=== PATIENT | male | born 1995 | race Asian ===

== ENCOUNTER 2021-12-03 18:20 | Emergency (ER) | payer SELFPAY ==
--- NOTE | 2021-12-03 21:15 | RAD REPORT ---
EXAM DESCRIPTION: RAD - Foot Left 3 View - 12/03/2021 9:05 pm CLINICAL HISTORY: PAIN COMPARISON: No comparisons FINDINGS: No bone or joint abnormality is detected.
--- NOTE | 2021-12-03 21:32 | ER ---
Nurse's Notes [facility] Name: Enzo Brown Age: 26 yrs Sex: Male : 1995 Arrival Date: 12/03/2021 Time: 18:23 Bed 23 Private MD: Diagnosis: Pain in left foot Presentation: 12/03 19:25 Chief complaint: Friend and/or Co-Worker states: left foot pain for 3 days. comes and lg3 goes. believes it is due to uric acid. Coronavirus screen: Client denies travel out of the [place] in the last 14 days. At this time, the client does not indicate any symptoms associated with coronavirus-19. Ebola Screen: No symptoms or risks identified at this time. Initial Sepsis Screen: Does the patient meet any 2 criteria? No. Patient's initial sepsis screen is negative. Does the patient have a suspected source of infection? No. Patient's initial sepsis screen is negative. Risk Assessment: Do you want to hurt yourself or someone else? Patient reports no desire to harm self or others. Onset of symptoms was November 30, 2021. 19:25 Method Of Arrival: Wheelchair lg3 19:25 Acuity: YESI 3 lg3 Triage Assessment: 19:28 General: Appears in no apparent distress. comfortable, Behavior is calm, cooperative. lg3 Pain: Complains of pain in left foot Pain currently is 9 out of 10 on a pain scale. EENT: No deficits noted. No signs and/or symptoms were reported regarding the EENT system. Neuro: No deficits noted. Level of Consciousness is awake, alert, obeys commands, Oriented to person, place, time. Cardiovascular: No deficits noted. Denies chest pain, shortness of breath. Respiratory: No deficits noted. Airway is patent Trachea midline Respiratory effort is even, unlabored, Respiratory pattern is regular, symmetrical. GI: No deficits noted. No signs and/or symptoms were reported involving the gastrointestinal system. : No deficits noted. No signs and/or symptoms were reported regarding the genitourinary system. Derm: No deficits noted. No signs and/or symptoms reported regarding the dermatologic system. Musculoskeletal: Reports pain in left foot. Historical: - Allergies: 19:28 No Known Allergies; lg3 - Home Meds: 19: None [Active]; lg3 - PMHx: 19:28 None; lg3 - PSHx: 19:28 None; lg3 - Immunization history:: Adult Immunizations not up to date, Client reports receiving the 1st dose of the Covid vaccine. - Social history:: Smoking status: Patient reports the use of cigarette tobacco products, smokes one-half pack cigarettes per day, Patient uses alcohol, occasionally. Screenin:31 Abuse screen: Denies threats or abuse. Denies injuries from another. Nutritional lg3 screening: No deficits noted. Tuberculosis screening: No symptoms or risk factors identified. Fall Risk None identified. Assessment: 20:03 General: Appears in no apparent distress. comfortable, Behavior is calm, cooperative, ld1 appropriate for age. Pain: Complains of pain in left foot Pain does not radiate. Pain currently is 7 out of 10 on a pain scale. Quality of pain is described as throbbing, Pain began suddenly, Is continuous. Neuro: Level of Consciousness is awake, alert, obeys commands, Oriented to person, place, time, situation, Appropriate for age. Cardiovascular: Capillary refill < 3 seconds Patient's skin is warm and dry. Respiratory: Airway is patent Respiratory effort is even, unlabored. GI: No signs and/or symptoms were reported involving the gastrointestinal system. : No signs and/or symptoms were reported regarding the genitourinary system. EENT: No signs and/or symptoms were reported regarding the EENT system. Derm: No signs and/or symptoms reported regarding the dermatologic system. Musculoskeletal: No signs and/or symptoms reported regarding the musculoskeletal system. 20:45 Reassessment: Patient appears in no apparent distress at this time. No changes from ld1 previously documented assessment. Patient and/or family updated on plan of care and expected duration. Pain level reassessed. Vital Signs: 19:25 BP 150 / 124; Pulse 80; Resp 17; Temp 98.8(TE); Pulse Ox 100% on R/A; Weight 74.84 kg lg3 (R); Height 5 ft. 4 in. (162.56 cm) (R); Pain 9/10; 20:45 BP 146 / 109; Pulse 82; Resp 18; Pulse Ox 100% on R/A; ld1 19:25 Body Mass Index 28.32 (74.84 kg, 162.56 cm) lg3 ED Course: 18:23 Patient arrived in ED. ds1 19:28 Triage completed. lg3 19:28 Arm band placed on left wrist. lg3 19:58 Te Denise PA is PHCP. jr8 19:58 Bryan Mora MD is Attending Physician. jr8 20:03 Yeni Bravo, RN is Primary Nurse. ld1 20:03 Patient has correct armband on for positive identification. Placed in gown. Bed in low ld1 position. Call light in reach. Side rails up X2. quality assurance monitor final on. Pulse ox on. NIBP on. Door closed. Noise minimized. Warm blanket given. 20:03 No provider procedures requiring assistance completed. ld1 21:07 XRAY Foot LEFT 3 View In Process Unspecified. EDMS 21:30 Oliverio Panaigua DPM is Referral Physician. jr8 21:40 Patient did not have IV access during this emergency room visit. vc1 21:47 Primary Nurse role handed off by Yeni Bravo, RN vc1 Administered Medications: 21:54 Drug: Motrin (ibuprofen) 600 mg Route: PO; vc1 21:54 Drug: [place] (HYDROcodone-acetaminophen) 10 mg-325 mg 1 tabs Route: PO; vc1 Outcome: 21:31 Discharge ordered by . jr8 21:40 Discharged to home ambulatory, with family. vc1 21:40 Condition: good 21:40 Discharge instructions given to patient, family, Instructed on discharge instructions, follow up and referral plans. medication usage, Demonstrated understanding of instructions, follow-up care, medications, Prescriptions given X 1. 21:40 Patient left the ED. vc1 21:57 Patient left the ED. mw2 Signatures: Dispatcher [employer]DAK Anca Vergara ds1 Te Denise PA PA jr8 Reginald Doan mw2 Shawnee Pritchett RN RN lg3 Yeni Bravo, RN RN ld1 Deborah Moore RN RN vc1
--- NOTE | 2021-12-03 21:32 | EDPHYS ---
Physician Documentation [facility] Name: Enzo Brown Age: 26 yrs Sex: Male : 1995 Arrival Date: 12/03/2021 Time: 18:23 Bed 23 Private MD: ANGIE Physician Bryan Mora HPI: 12/03 20:37 This 26 yrs old Male presents to ER via Wheelchair with complaints of Foot Pain. jr8 20:37 Onset: The symptoms/episode began/occurred acutely, today. Modifying factors: The jr8 symptoms are alleviated by nothing. the symptoms are aggravated by movement, weight bearing. Associated signs and symptoms: The patient has no apparent associated signs or symptoms. Severity of symptoms: At their worst the symptoms were moderate, in the emergency department the symptoms are unchanged. The patient has not experienced similar symptoms in the past. The patient has not recently seen a physician. Patient stated that his left foot started to hurt earlier today on the dorsal aspect. Denies fall or injury to foot. Denies any other medical problems or pain.. Historical: - Allergies: 19:28 No Known Allergies; lg3 - Home Meds: 19:28 None [Active]; lg3 - PMHx: 19:28 None; lg3 - PSHx: 19:28 None; lg3 - Immunization history:: Adult Immunizations not up to date, Client reports receiving the 1st dose of the Covid vaccine. - Social history:: Smoking status: Patient reports the use of cigarette tobacco products, smokes one-half pack cigarettes per day, Patient uses alcohol, occasionally. ROS: 20:37 Eyes: Negative for injury, pain, redness, and discharge, ENT: Negative for injury, jr8 pain, and discharge, Neck: Negative for injury, pain, and swelling, Cardiovascular: Negative for chest pain, palpitations, and edema, Respiratory: Negative for shortness of breath, cough, wheezing, and pleuritic chest pain, Abdomen/GI: Negative for abdominal pain, nausea, vomiting, diarrhea, and constipation, Back: Negative for injury and pain, Skin: Negative for injury, rash, and discoloration, Neuro: Negative for headache, weakness, numbness, tingling, and seizure. 20:37 MS/extremity: Positive for pain, tenderness, of the left foot. Exam: 20:37 Constitutional: This is a well developed, well nourished patient who is awake, alert, jr8 and in no acute distress. Cardiovascular: Regular rate and rhythm with a normal S1 and S2. No gallops, murmurs, or rubs. Normal PMI, no JVD. No pulse deficits. Respiratory: Lungs have equal breath sounds bilaterally, clear to auscultation and percussion. No rales, rhonchi or wheezes noted. No increased work of breathing, no retractions or nasal flaring. Skin: Warm, dry with normal turgor. Normal color with no rashes, no lesions, and no evidence of cellulitis. Neuro: Awake and alert, GCS 15, oriented to person, place, time, and situation. Cranial nerves II-XII grossly intact. Motor strength 5/5 in all extremities. Sensory grossly intact. 20:37 Musculoskeletal/extremity: Extremities: grossly normal except: noted in the left foot: pain, tenderness, over dorsal mid foot. No erythema, swelling, or bruising noted . Vital Signs: 19:25 BP 150 / 124; Pulse 80; Resp 17; Temp 98.8(TE); Pulse Ox 100% on R/A; Weight 74.84 kg lg3 (R); Height 5 ft. 4 in. (162.56 cm) (R); Pain 9/10; 20:45 BP 146 / 109; Pulse 82; Resp 18; Pulse Ox 100% on R/A; ld1 19:25 Body Mass Index 28.32 (74.84 kg, 162.56 cm) lg3 MDM: 19:58 Patient medically screened. jr8 20:37 Data reviewed: vital signs, nurses notes, radiologic studies, plain films. Data jr8 interpreted: Pulse oximetry: on room air is 100 %. Interpretation: normal. Counseling: I had a detailed discussion with the patient and/or guardian regarding: the historical points, exam findings, and any diagnostic results supporting the discharge/admit diagnosis, radiology results, the need for outpatient follow up, a family practitioner, to return to the emergency department if symptoms worsen or persist or if there are any questions or concerns that arise at home. 21:30 ED course: No acute osseous findings on x-ray. Will start patient on jr8 anti-inflammatories and needs follow-up podiatry if he continues to have pain.. 12/03 20:25 Order name: XRAY Foot LEFT 3 View; Complete Time: 21:30 ld1 Administered Medications: 21:54 Drug: Motrin (ibuprofen) 600 mg Route: PO; vc1 21:54 Drug: [place] (HYDROcodone-acetaminophen) 10 mg-325 mg 1 tabs Route: PO; vc1 Disposition Summary: 12/03/21 21:31 Discharge Ordered Location: Home jr8 Problem: new jr8 Symptoms: are unchanged jr8 Condition: Stable jr8 Diagnosis - Pain in left foot jr8 Followup: jr8 - With: Oliverio Paniagua DPM - When: 1 week - Reason: If symptoms return, Recheck today's complaints Discharge Instructions: - Discharge Summary Sheet jr8 - Foot Pain jr8 Forms: - Medication Reconciliation Form jr8 - Thank You Letter jr8 - Antibiotic Education jr8 - Prescription Opioid Use jr8 Prescriptions: - meloxicam 15 mg Oral tablet - take 1 tablet by ORAL route once daily As needed; 10 tablet; Refills: 0, jr8 Product Selection Permitted - Tylenol-Codeine #3 300 mg-30 mg Oral - take 2 tablet by ORAL route every 6 hours; 26 tablet; Refills: 0, Product gabriella Selection Permitted - Medrol ([place]) 4 mg Oral Tablets, Dose Pack - take 1 tablet by ORAL route as directed - follow package instructions; 1 gabriella packet; Refills: 0, Product Selection Permitted - colchicine 0.6 mg Oral tablet - take 2 tablet by ORAL route 2 times per day; 6 tablet; Refills: 0, Product jr8 Selection Permitted Addendum: 12/05/2021 06:37 Co-signature as Attending Physician, Bryan Mora MD I agree with the assessment and c taylor plan of care. Signatures: Dispatcher [employer] Bryan Fuentes MD MD cha Roszak, Josh, PA PA jr8 Shawnee Pritchett, RN RN lg3 Deborah Moore RN RN vc1
[2021-12-03] MEDS ORDERED: IBUPROFEN 400 MG TAB ONE (21:54)
[2021-12-03] MEDS ORDERED: HYDROCODONE/APAP 10/325 TAB ONE (21:54)
[2021-12-03] MEDS ORDERED: IBUPROFEN 200 MG TAB PO ONE (21:54)
[2021-12-03 22:27] VITALS: TEMP 98.8; O2SAT 100
[2021-12-03 22:28] VITALS: BP 146/109
== END 2021-12-03 21:57 | disposition home or self-care (01) ==
LOC: ER 18:20
DX: M79.672 Pain in left foot (principal); F17.210 Nicotine dependence, cigarettes, uncomplicated
CPT/HCPCS: 99284